=== PATIENT | female | born 1960 | race Hispanic/Latino ===

== ENCOUNTER 2022-08-17 08:21 | Day surgery (SDC) | payer OTHER ==
[2022-08-13 10:29] VITALS: BP 132/66
[2022-08-13 10:36] LABS: BASOPHILS % (AUTO) 0.8 % (0.0-5.0); EOSINOPHILS % (AUTO) 3.7 % (0.0-8.0); HEMATOCRIT 39.9 % (36-48); LYMPHOCYTES % (AUTO) 30.7 % (21.0-51.0); MEAN CORPUSCULAR HEMOGLOBIN 27.9 pg (27.0-33.0); MEAN CORPUSCULAR HGB CONC 31.6 g/dL (32.0-36.0); MEAN CORPUSCULAR VOLUME 88.5 fL (79-99); MONOCYTES % (AUTO) 7.8 % (3.0-13.0); NEUTROPHILS % (AUTO) 56.7 % (40.0-77.0); PLATELET COUNT (AUTO) 196 K/uL (130-400); RED BLOOD CELL COUNT(AUTO) 4.51 MIL/uL (4.00-5.50); RED CELL DISTRIBUTION WIDTH 14.6 % (11.0-15.5); WHITE BLOOD COUNT (AUTO) 6.5 K/uL (4.8-10.8)
[~2022-08-17] VITALS: Ht 154.9 cm; Wt 92.2 kg
[2022-08-17] VITALS (19 sets, daily range): BP systolic 109–146; BP diastolic 48–86
[~2022-08-17 08:21] MED LIST: ATOR10 PO; BUPIVACAINE/PF 0.5% 10ML VIAL ONE; EMPA10TA PO; HYDR25TA PO; INSU100V12 SQ; LOSA100T58 PO; METF-446 PO
[2022-08-17] MEDS: 0.9%NACL 1000ML 1,000 ML IV SCH ×3 (09:15→12:03)
[2022-08-17] MEDS: CEFAZOLIN SODIUM 1 GM VIAL IVPB SCH ×2 (09:17→10:41)
[2022-08-17 09:29] LABS: CREATININE 0.8 mg/dL (0.5-1.5); POTASSIUM 4.2 mmol/L (3.5-5.1)
[2022-08-17] MEDS ORDERED: TRAZ-185 PO (09:33)
[2022-08-17] MEDS ORDERED: LEVO75CA5 PO (09:33)
[2022-08-17] MEDS ORDERED: ONDANSETRON 4MG INJ ONE (10:16)
[2022-08-17] MEDS ORDERED: FENTANYL CITRATE PF 50 MCG/1 ML 2ML VIAL ONE (10:16)
[2022-08-17] MEDS ORDERED: PROPOFOL 10 MG/ML 20ML VIAL IV ONE (10:16)
[2022-08-17] MEDS ORDERED: ROCURONIUM 10MG/1ML SYR 10 MG/ML ML ONE (10:16)
[2022-08-17] MEDS ORDERED: MIDAZOLAM HCL 1 MG/ML 2ML VIAL ONE (10:16)
[2022-08-17] MEDS ORDERED: EPHEDRINE SULFATE 50 MG/ML AMPULE ONE (10:58)
[2022-08-17] MEDS ORDERED: NEOSTIGMINE 5MG/5ML SYR IV ONE (11:50)
[2022-08-17] MEDS ORDERED: GLYCOPYRROLATE 1 MG/5 ML SYRINGE ONE (11:50)
[2022-08-17] MEDS ORDERED: IBUPROFEN 800 MG TAB ONE (13:44)
== END 2022-08-17 14:10 | disposition home or self-care (01) ==
LOC: DAH 08:21
PROVIDERS: ATTEND Surgery
DX: K40.90 Unilateral inguinal hernia, without obstruction or gangrene, not specified as recurrent (principal); Z20.822 Contact with and (suspected) exposure to COVID-19; K42.9 Umbilical hernia without obstruction or gangrene; I10 Essential (primary) hypertension; E66.01 Morbid (severe) obesity due to excess calories; E11.9 Type 2 diabetes mellitus without complications; Z79.01 Long term (current) use of anticoagulants; Z79.899 Other long term (current) drug therapy; Z79.84 Long term (current) use of oral hypoglycemic drugs; Z98.890 Other specified postprocedural states; Z98.891 History of uterine scar from previous surgery; Z80.42 Family history of malignant neoplasm of prostate; Z79.890 Hormone replacement therapy
CPT/HCPCS: 49650; S2900; 36415; 80048; 82948; 85025; 87426; 93005; A4344; J0690; J2250; J2405; J2704; J2710; J3010; J3490; J7120